=== PATIENT | female | born 1990 | race Caucasian/White ===

== ENCOUNTER 2020-04-07 00:02 | Emergency (ER) | payer OTHER, SELFPAY ==
[2020-04-07 00:11] VITALS: BP 139/90; PULSE 105; RESP 12; TEMP 36.7; O2SAT 100
[2020-04-07] MEDS: HYDROcodone/acetaminophen (*CRX) 5-325 MG TABLET 1 TAB PO (01:03)
--- NOTE | 2020-04-07 01:05 | ED.SKABFB ---
HPI - Skin/Abscess/Foreign Bdy General Chief complaint: Skin/Abscess/Foreign Body Stated complaint: abcess Time Seen by Provider: 04/07/20 00:09 History of Present Illness HPI narrative: Patient is a 30-year-old female who presents ER with concerns for possible abscess. Patient started having pain in her right axillary region couple days ago. Her significant other expressed some purulent drainage from it earlier in the evening. She has redness surrounding it. No fevers or chills or sweats. She has been applying prid and bandages with no relief. Related Data Allergies Allergy/AdvReac Type Severity Reaction Status Date / Time No Known Allergies Allergy Mild Unverified 04/07/20 00:13 Review of Systems Constitutional: Constitutional: Denies chills and Denies fever(s) Integumentary/Breasts: Skin/Breast: Denies pruritus and Reports erythema Comments: possible abscess PMFSH Past Medical History Medical History (Updated 04/07/20 @ 01:10 by Alex Staton MD) Healthy female adult Surgical History Surgical History (Updated 04/07/20 @ 01:08 by Alex Staton MD) No history of previous surgery Social History Social History (Updated 04/07/20 @ 01:08 by Alex Staton MD) Smoking status: Current every day smoker Exam Narrative: Exam Narrative: GENERAL: Well-appearing, well-nourished, and in no acute distress. HEAD: Normocephalic, atraumatic. EXTREMITIES: Normal range of motion. No edema. SKIN: Warm, dry. Area of redness to the proximal aspect of the right upper extremity near the axilla. There is a nodular area with some skin breakdown overlying it. No abscess or pustules noted. NEURO: No focal deficits. Alert and oriented x3. PSYCH: Normal mood and affect. Course Vital Signs Vital signs: Vital Signs Temperature 98.0 F 04/07/20 00:11 Pulse Rate 105 H 04/07/20 00:11 Respiratory Rate 12 04/07/20 00:11 Blood Pressure 139/90 04/07/20 00:11 Pulse Oximetry 100 04/07/20 00:11 Temperature 98.0 F 04/07/20 00:11 Pulse Rate 105 H 04/07/20 00:11 Respiratory Rate 12 04/07/20 00:11 Blood Pressure 139/90 04/07/20 00:11 Pulse Oximetry 100 04/07/20 00:11 Discharge Plan Discharge Clinical Impression: Cellulitis Patient Disposition: Home, Self-Care Condition: Stable Instructions: Cellulitis (ED) Additional Instructions: Return to the ER if you have worsening redness, you develop fever over 100.4 ?F, you have additional concerns. Prescriptions: New hydrocodone-acetaminophen 5-325 mg tablet 1 tablet PO Q6H PRN (Reason: pain) Qty: 20 RF: 0 sulfamethoxazole-trimethoprim [Bactrim DS] 800-160 mg tablet 1 tablet PO Q12H Qty: 20 RF: 0 Follow-up/Referrals: Julio Lynne MD [Physician] - 1 Week PHYSICIAN,PRIVATE SECRETARY [Primary Care Provider] -
[2020-04-07 01:17] VITALS: BP 130/84; PULSE 89; RESP 18; O2SAT 99
== END 2020-04-07 01:20 | disposition home or self-care (01) ==
PROVIDERS: Emergency Provider Emergency Medicine
DX: L03.111 Cellulitis of right axilla (principal)
CPT/HCPCS: 99283; A9270